=== PATIENT | female | born 1950 | race Hispanic/Latino ===

== ENCOUNTER → 2019-12-15 | Outpatient (CLI) | payer MEDICARE, OTHER ==
[~2019-12-15] MED LIST: DIATRIZOATE MEGL/DIATRIZOA SOD 30 ML BTL PO ONE; IOPAMIDOL 370 MG/ML 200 ML INFUS..BTL INJ ONE; SODIUM CHLORIDE 0.9% 50ML 50 ML ONE
[2019-12-15 09:56] LABS: BLOOD UREA NITROGEN 17 mg/dL (7-26); BUN/CREATININE RATIO 19 (6-25); CREATININE, SERUM 0.89 mg/dL (0.57-1.11); EST GLOMERULAR FILTRATION RATE > 60 ML/MIN (60-)
--- NOTE | 2019-12-15 11:37 | Diagnostic Imaging Report ---
CT of the abdomen and pelvis. Comparison: Ultrasound pelvis 07/27/2019 Clinical History: Pain for one month Technique: Helical CT scan of the abdomen and pelvis was performed. Intravenous contrast administration was utilized. Oral contrast administration was utilized. Coronal and sagittal reconstructions were generated from the raw data. Multiple images were submitted for interpretation. This exam was performed according to our departmental dose-optimization program which includes automated exposure control, adjustment of the mA and/or kV according to patient size Discussion: Inferior chest: Unremarkable lungs and pleura. Cardiomegaly.. Liver: Unremarkable Spleen: Unremarkable Pancreas: Unremarkable Biliary tree and gallbladder: Status post cholecystectomy. Biliary tree unremarkable. Adrenal glands: Unremarkable Kidneys and ureters: Unremarkable Vasculature: Minimal atherosclerotic calcification of aorta and its major arteries. Lymph nodes: Periaortic lymph nodes but all meet the size criteria for normal. Bowel: Unremarkable Pelvis: Urinary bladder is unremarkable. The uterus is prominent and shows a prominent with a lobulated contour suggestive of fibroids especially noticeable in the region of the right cornua with calcifications suggestive of degenerated fibroid. The inner layers of uterus appeared to be low density an irregular contour. This could be result of a degenerating fibroids in the wall of the uterus. CT is not ideally suited for evaluation of the pelvic genital organs. A transvaginal ultrasound should be considered. The adnexa are unremarkable. Pelvic wall unremarkable. Peritoneum: Unremarkable Perineal compartments: unremarkable. Fluid: No free fluid. Bones: Degenerative disease at thoracolumbar level. Body wall: Small fat-containing umbilical hernia. Impression: Please see above regarding the uterus. No other significant abnormality visualized. Signed by: Maynor Lerma MD on 12/15/2019 11:33 AM
== END ==
LOC: CT 08:43
PROVIDERS: ATTEND Internal Medicine
DX: R10.9 Unspecified abdominal pain (principal); K42.9 Umbilical hernia without obstruction or gangrene; M51.35 Other intervertebral disc degeneration, thoracolumbar region
CPT/HCPCS: 36415; 74177; 82565; 84520; Q9967

== ENCOUNTER → 2019-12-21 | Outpatient (CLI) | payer MEDICARE, OTHER ==
--- NOTE | 2019-12-21 10:24 | Diagnostic Imaging Report ---
EXAM: US PELVIS COMPLETE NON OB DATE: 12/21/2019 8:39 AM INDICATION: Pelvic pain COMPARISON: CT abdomen/pelvis with contrast from 12/15/2019 FINDINGS: The uterus measures 9.2 x 5.1 x 5.8 cm. The endometrial stripe appears significantly thickened at the uterine body/fundus and contains a heterogeneous lesion measuring approximately 2.4 x 2.3 x 3.1 cm. This lesion demonstrates no significant internal vascularity No other focal intrauterine lesions are identified. The ovaries could not be visualized transabdominally or transvaginally which may be secondary to their small size and prominent adjacent bowel gas. No abnormal adnexal masses are identified. No free fluid is visualized. IMPRESSION: Heterogeneous solid lesion identified involving the endometrium measuring up to 3.1 cm. This may represent a submucosal fibroid but is not definitively characterized on this ultrasound examination. Recommend [employer]ICIAN consultation. Pelvic MRI may provide further characterization. Signed by: Dr. Eliazar Mccabe MD on 12/21/2019 10:21 AM
== END ==
LOC: US 08:13
PROVIDERS: ATTEND Internal Medicine
DX: R10.2 Pelvic and perineal pain (principal); N94.9 Unspecified condition associated with female genital organs and menstrual cycle
CPT/HCPCS: 76830; 76856